=== PATIENT | female | born 1970 | race Caucasian/White ===

== ENCOUNTER → 2016-12-31 | Outpatient (CLI) | payer OTHER | LOC: BMCIMAGING 14:08 | PROVIDERS: ATTEND Orthopaedic Surgery | DX: M25.562 Pain in left knee (principal); M25.462 Effusion, left knee; Z96.652 Presence of left artificial knee joint ==

== ENCOUNTER → 2017-01-20 | Outpatient (CLI) | payer OTHER | LOC: BMCIMAGING 15:48 | PROVIDERS: ATTEND Orthopaedic Surgery | DX: Z47.1 Aftercare following joint replacement surgery (principal); Z96.652 Presence of left artificial knee joint ==

== ENCOUNTER 2017-01-21 10:00 | Inpatient (IN) | payer OTHER ==
[~2017-01-21 10:00] MED LIST: ROPIVACAINE 0.2% 80 MG, EPINEPHrine 0.2 MG, KETOROLAC TROMETHAMINE 30 MG, morphINE 10 M... IU ONE; TRANEXAMIC ACID 1,000 MG in NS 100 ML IV ONE
[2017-01-21] MEDS ORDERED: ACETAMINOPHEN 325 MG TAB PO ONE (10:10)
[2017-01-21] MEDS ORDERED: FAMOTIDINE 20 MG TAB PO ONE (10:10)
[2017-01-21] MEDS ORDERED: ceFAZolin 2 GM/SWFI 2 GM/20 ML SYR IVP ONE (10:10)
[2017-01-21] MEDS ORDERED: LR 1,000 ML IV ONE (10:11)
[2017-01-21] MEDS ORDERED: LIDOCAINE 1% 2 ML INJ ID PRN (10:11)
[2017-01-21] MEDS ORDERED: ceFAZolin 1 GM/5 ML SYR ONE (10:46)
[2017-01-21] MEDS ORDERED: BUPIVACAINE/EPI 0.5% 30 ML SDV ONE (10:47)
[2017-01-21] MEDS ORDERED: CALCIUM CHLORIDE 1 GM/10 ML INJ ONE (10:48)
[2017-01-21] MEDS ORDERED: THROMBIN (BOVINE) 5,000 UNIT VIAL TP ONE (10:49)
--- NOTE | 2017-01-21 11:33 | PDHPUP ---
History & Physical Update H&P update statement: This history and physical update is based on an assessment of the patient which was completed after admission or registration (within 24 hours), but prior to the surgery/procedure.
--- NOTE | 2017-01-21 11:34 | PDIAF ---
- Diagnosis Diagnosis: left failed tka Code Status: Full Code - Medication Management Discharge Medications: Medications to Continue on Transfer Empagliflozin [Jardiance] 10 mg PO DAILY 01/07/17 [Last Taken 01/20/17] Gabapentin [Neurontin 300 MG (*)] 600 mg PO HS 01/07/17 [Last Taken 01/20/17] Hydralazine HCl 25 mg PO HS 01/07/17 [Last Taken 01/20/17] Hydrochlorothiazide [HCTZ (*)] 25 mg PO DAILY 01/07/17 [Last Taken 01/20/17] Multivitamins [Multivitamin (*)] 1 each PO DAILY 01/07/17 [Last Taken 01/20/17] [place]-3 Fatty Acids [Fish Oil 1000 mg (*)] 1,000 mg PO DAILY 01/07/17 [Last Taken 01/14/17] buPROPion XL [Wellbutrin Xl] 450 mg PO DAILY 01/07/17 [Last Taken 01/21/17] metFORMIN HCL [Metformin HCl ER] 1,000 mg PO BID 01/07/17 [Last Taken 01/20/17] Levothyroxine [Synthroid 75 mcg (*)] 75 mcg PO DAILY06 01/21/17 [Last Taken 01/26] Rosuvastatin Calcium [Crestor 10mg (RX)] 10 mg PO DAILY 01/21/17 [Last Taken 12/27] Discharge Medications: Refer to the Discharge Home Medication list for PRN reason. - Orders Services needed: Home Care, Physical Therapy Home Care Face to Face: I certify that this patient was under my care and that I had the required [id number] encounter meeting the encounter requirements on the discharge day. My findings support the fact that the patient is homebound as defined in Home Care Face to Face Continued: CMS Chapter 7 Medicare Benefits Manual 30.1.1 , The condition of the patient is such that there exists a normal inability to leave home and consequently, leaving home would require a considerable and taxing effort. Diet Recommendation: no restrictions on diet Diet Texture: Regular Texture Diet Activity/Weight Bearing Restrictions: wbat. rom as tolerated. daily dressing changes. may shower without bandage. no soaking or immersion. f/u at two weeks as previously scheduled. aspirin 325 mg po daily - Follow Up Care Current Providers and Referrals: Sathish Salvador MD [Primary Care Provider] -
[2017-01-21] MEDS ORDERED: MIDAZOLAM 2 MG/2 ML VIAL IVP ONE (11:58)
--- NOTE | 2017-01-21 12:00 | PDANEPAE ---
ANE Past Medical History - Cardiovascular History Hx Hypertension: Yes Hx Arrhythmias: No Hx Chest Pain: No Hx Coronary Artery / Peripheral Vascular Disease: No Hx CHF / Valvular Disease: No Hx Palpitations: No Cardiovascular History Comment: pcp monitors bp. swelling - Pulmonary History Hx COPD: No Hx Asthma/Reactive Airway Disease: No Hx Recent Upper Respiratory Infection: Yes Hx Oxygen in Use at Home: No Hx Sleep Apnea: No Sleep Apnea Screening Result - Last Documented: Negative Pulmonary History Comment: hx of asthma when she was overweight - Neurologic History Hx Cerebrovascular Accident: No Hx Seizures: No Hx Dementia: No Neurologic History Comment: hx of cervical fusion - Endocrine History Hx Diabetes: Yes Hypothyroid: No Hyperthyroid: No Obesity: severe Endocrine History Comment: hypothyroidism. type 2 - Renal History Hx Renal Disorders: No - Liver History Hx Hepatic Disorders: No - Neurological & Psychiatric Hx Hx Neurological and Psychiatric Disorders: Yes Neurological / Psychiatric History Comment: depression. anxiety - Cancer History Hx Cancer: No - Congenital Disorder History Hx Congenital Disorders: No - GI History Hx Gastrointestinal Disorders: Yes Gastrointestinal History Comment: diarrhea regularly - Other Health History Other Health History: wears glasses - Chronic Pain History Chronic Pain: Yes (left knee) - Surgical History Prior Surgeries: left knee replacement x1. right knee replacement. cervical fusion. left knee scopes. toño. appy ANE Review of Systems Review of Systems: - Exercise capacity METS (RN): 4 METS ANE Patient History - Allergies Allergies/Adverse Reactions: prednisone Allergy (Verified 01/07/17 15:24) makes patient feels "nuts" Sulfa (Sulfonamide Antibiotics) Allergy (Verified 01/07/17 15:24) swell - Home Medications Home Medications: Empagliflozin [Jardiance] 10 mg PO DAILY 01/07/17 [Last Taken 01/20/17] Gabapentin [Neurontin 300 MG (*)] 600 mg PO HS 01/07/17 [Last Taken 01/20/17] Hydralazine HCl 25 mg PO HS 01/07/17 [Last Taken 01/20/17] Hydrochlorothiazide [HCTZ (*)] 25 mg PO DAILY 01/07/17 [Last Taken 01/20/17] Multivitamins [Multivitamin (*)] 1 each PO DAILY 01/07/17 [Last Taken 01/20/17] [place]-3 Fatty Acids [Fish Oil 1000 mg (*)] 1,000 mg PO DAILY 01/07/17 [Last Taken 01/14/17] buPROPion XL [Wellbutrin Xl] 450 mg PO DAILY 01/07/17 [Last Taken 01/21/17] metFORMIN HCL [Metformin HCl ER] 1,000 mg PO BID 01/07/17 [Last Taken 01/20/17] Levothyroxine [Synthroid 75 mcg (*)] 75 mcg PO DAILY06 01/21/17 [Last Taken 01/26] Rosuvastatin Calcium [Crestor 10mg (RX)] 10 mg PO DAILY 01/21/17 [Last Taken 12/27] - NPO status NPO Since - Liquids (Date): 01/21/17 NPO Since - Liquids (Time): 09:30 NPO Since - Solids (Date): 01/20/17 NPO Since - Solids (Time): 23:00 - Smoking Hx Smoking Status: Never smoked - Family Anes Hx Family Hx Anesthesia Complications: mother and pt have low blood oxygen levels ANE Labs/Vital Signs - Vital Signs Blood Pressure: 143/94 Heart Rate: 85 Respiratory Rate: 16 O2 Sat (%): 92 Height: 170.18 cm Weight: 102.965 kg ANE Physical Exam - Airway Neck exam: decreased ROM Mallampati Score: Class 1 Mouth exam: normal dental/mouth exam - Pulmonary Pulmonary: no respiratory distress - Cardiovascular Cardiovascular: regular rate and rhythym - ASA Status ASA Status: III ANE Anesthesia Plan Anesthesia Plan: spinal
[2017-01-21] MEDS ORDERED: fentaNYL 100 MCG/2 ML INJ ONE (12:08)
[2017-01-21] MEDS ORDERED: PROPOFOL/EMULSION 500 MG/50 ML BOTTLE IV ONE (12:08)
[2017-01-21] MEDS ORDERED: MIDAZOLAM 2 MG/2 ML VIAL ONE (12:46)
[2017-01-21] MEDS ORDERED: PROPOFOL 200 MG/20 ML VIAL ONE ×2 (13:20→13:42)
[2017-01-21] MEDS ORDERED: PROMETHAZINE HCL 25 MG/ML INJ IVP PRN (14:07)
[2017-01-21] MEDS ORDERED: TEMAZEPAM 15 MG CAP PO PRN (14:07)
[2017-01-21] MEDS ORDERED: ONDANSETRON 4 MG/2 ML VIAL IVP PRN ×2 (14:07→14:59)
[2017-01-21] MEDS ORDERED: BISACODYL 10 MG SUPP PR PRN (14:07)
[2017-01-21] MEDS ORDERED: DIAZEPAM 5 MG TAB PO PRN (14:07)
[2017-01-21] MEDS ORDERED: POLYETHYLENE GLYCOL 3350 17 GM PKT PO PRN (14:07)
[2017-01-21] MEDS ORDERED: DIPHENOXYLATE/ATROPINE LOMOTIL 1 TAB PO PRN (14:07)
[2017-01-21] MEDS ORDERED: METOCLOPRAMIDE 10 MG/2 ML VIAL IVP PRN (14:07)
[2017-01-21] MEDS ORDERED: diphenhydrAMINE 25 MG CAP PO PRN (14:07)
[2017-01-21] MEDS ORDERED: CYCLOBENZAPRINE 10 MG TAB PO PRN (14:07)
[2017-01-21] MEDS ORDERED: LACTULOSE 20 GM/30 ML UDCUP PO PRN (14:07)
[2017-01-21] MEDS ORDERED: PROMETHAZINE HCL 25 MG SUPPR PR PRN (14:07)
[2017-01-21] MEDS ORDERED: ONDANSETRON DISINTEGRATING 4 MG TAB PO PRN (14:07)
[2017-01-21] MEDS ORDERED: MAGNESIUM HYDROXIDE 30 ML UDCUP PO PRN (14:07)
[2017-01-21] MEDS ORDERED: ROPIVACAINE HCL 150 MG/30 ML INJ ONE (14:23)
[2017-01-21] MEDS ORDERED: LR 1,000 ML IV SCH (14:30)
[2017-01-21] MEDS ORDERED: LR 500 ML IV PRN (14:59)
[2017-01-21] MEDS ORDERED: fentaNYL 100 MCG/2 ML INJ IVP PRN (14:59)
[2017-01-21] MEDS ORDERED: NALOXONE HCL 0.4 MG/ML INJ IVP PRN (14:59)
[2017-01-21] MEDS ORDERED: HYDROCODONE/APAP 5/325 TAB PO PRN (14:59)
--- NOTE | 2017-01-21 15:01 | POSTANESTH ---
Post Anesthetic Evaluation Cardiovascular Status: Normal, Stable Respiratory Status: Normal, Stable Level of Consciousness/Mental Status: Can Participate in Eval Pain Control: Adequate, Prn Tx Ordered Nausea/Vomiting Control: Adequate, Prn Tx Ordered Complications Possibly Related to Anesthesia: None Noted
[2017-01-21] MEDS: ACETAMINOPHEN 325 MG TAB PO SCH ×2 (17:42→23:13)
[2017-01-21] MEDS: oxyCODONE IR 5 MG TAB PO PRN ×2 (18:47→22:03)
[2017-01-21] MEDS ORDERED: ASPIRIN 325 MG TAB PO SCH (21:00)
[2017-01-21] MEDS ORDERED: GABAPENTIN 300 MG CAP PO SCH (21:00)
[2017-01-21] MEDS ORDERED: hydrALAZINE 25 MG TAB PO SCH (21:00)
[2017-01-21] MEDS ORDERED: NON-FORMULARY NEW DRUG (Metformin Hcl [Metformin Hcl Er] 1,000 MG) PO SCH (21:00)
[2017-01-21] MEDS: ceFAZolin 2 GM/DEXTROSE 100 ML IV SCH (22:03)
[2017-01-21] MEDS: SENNOSIDES/DOCUSATE SODIUM TAB PO SCH (22:04)
[2017-01-21] MEDS: TRANEXAMIC ACID 650 MG TAB PO SCH (22:04)
[2017-01-21] MEDS: metFORMIN SR 500 MG TAB PO SCH (22:04)
[2017-01-21] MEDS: FAMOTIDINE 20 MG TAB PO SCH (22:04)
[2017-01-22] MEDS: ACETAMINOPHEN 325 MG TAB PO SCH ×2 (05:24→12:57)
[2017-01-22] MEDS: ceFAZolin 2 GM/DEXTROSE 100 ML IV SCH (05:24)
[2017-01-22] MEDS: TRANEXAMIC ACID 650 MG TAB PO SCH ×2 (05:24→13:01)
[2017-01-22] MEDS: oxyCODONE IR 5 MG TAB PO PRN ×3 (05:25→16:29)
[2017-01-22 05:35] LABS: HEMATOCRIT 35.7 % (38.0-47.0); HEMOGLOBIN 12.2 g/dL (12.6-16.3)
[2017-01-22] MEDS ORDERED: LEVOTHYROXINE 75 MCG TAB PO SCH (06:00)
--- NOTE | 2017-01-22 07:11 | PDIAF ---
- Diagnosis Diagnosis: left failed tka Code Status: Full Code - Medication Management Discharge Medications: Medications to Continue on Transfer Empagliflozin [Jardiance] 10 mg PO DAILY 01/07/17 [Last Taken 01/20/17] Gabapentin [Neurontin 300 MG (*)] 600 mg PO HS 01/07/17 [Last Taken 01/20/17] Hydralazine HCl 25 mg PO HS 01/07/17 [Last Taken 01/20/17] Hydrochlorothiazide [HCTZ (*)] 25 mg PO DAILY 01/07/17 [Last Taken 01/20/17] Multivitamins [Multivitamin (*)] 1 each PO DAILY 01/07/17 [Last Taken 01/20/17] [place]-3 Fatty Acids [Fish Oil 1000 mg (*)] 1,000 mg PO DAILY 01/07/17 [Last Taken 01/14/17] buPROPion XL [Wellbutrin 150mg XL] 450 mg PO DAILY 01/07/17 [Last Taken 01/21/17 ] metFORMIN HCL [Metformin HCl ER] 1,000 mg PO BID 01/07/17 [Last Taken 01/20/17] Levothyroxine [Synthroid 75 mcg (*)] 75 mcg PO DAILY06 01/21/17 [Last Taken 01/26] Rosuvastatin Calcium [Crestor] 10 mg PO DAILY 01/21/17 [Last Taken 01/20/17] Enoxaparin [Lovenox] 30 mg SC BID #14 syr 01/22/17 [Last Taken Unknown] oxyCODONE IR [Oxycodone Ir (*)] 5 - 10 mg PO Q3HRS PRN #80 tab 01/22/17 [Last Taken Unknown] Discharge Medications: Refer to the Discharge Home Medication list for PRN reason. - Orders Services needed: Home Care, Physical Therapy Home Care Face to Face: I certify that this patient was under my care and that I had the required [id number] encounter meeting the encounter requirements on the discharge day. My findings support the fact that the patient is homebound as defined in Home Care Face to Face Continued: CMS Chapter 7 Medicare Benefits Manual 30.1.1 , The condition of the patient is such that there exists a normal inability to leave home and consequently, leaving home would require a considerable and taxing effort. Diet Recommendation: no restrictions on diet Diet Texture: Regular Texture Diet Activity/Weight Bearing Restrictions: wbat. rom as tolerated. daily dressing changes. may shower without bandage. no soaking or immersion. f/u at two weeks as previously scheduled. aspirin 325 mg po daily - Follow Up Care Current Providers and Referrals: Sathish Salvador MD [Primary Care Provider] -
--- NOTE | 2017-01-22 07:45 | GDS ---
[f rep st] DISCHARGE SUMMARY ADMISSION DIAGNOSIS: Left total knee arthroplasty. POSTOP DIAGNOSIS: Left total knee arthroplasty. PROCEDURE: Revision arthroplasty left total knee and patellofemoral ligament reconstruction. OPERATIVE INDICATIONS: The patient is a 46-year-old woman who has undergone a total knee replacement at an outside facility approximately 1 year ago. She has developed gross instability to her patello femoral articulation. Given her failure with all conservative measures, I recommended operative inte rvention for revision and MPFL reconstruction. She understood the risks, benefits, alternatives, and wished to proceed. Written consent was signed and placed in the patient's chart. HOSPITAL COURSE: The patient was admitted to the hospital floor after uncomplicated revision arthrop lasty to her left knee and patellar stabilization. She tolerated the procedure well. She did have a [place] overnight which was discontinued. At the time of discharge, she is tolerating an oral diet, h er pain is well controlled on oral medicines, she is voiding without difficulty. Her dressing is morena an, dry, and intact. She has no calf swelling or tenderness. Negative Homans. X-rays are stable wi th anatomic alignment. DISCHARGE ACTIVITY: She is weightbearing as tolerated in the knee brace, locked in extension. There is no range of motion allowed at this time. Daily dressing changes. She will follow up in 2 weeks as previously scheduled for dressing changes and we will begin range of motion with physical therapy at that time. DISCHARGE MEDICATIONS: Oxycodone 5 mg 1-2 every 3 hours p.r.n. pain and enoxaparin 30 mg subcu twice daily. Follow up at 2 weeks. /[id number]/MODL
[2017-01-22] MEDS: SENNOSIDES/DOCUSATE SODIUM TAB PO SCH (08:46)
[2017-01-22] MEDS: metFORMIN SR 500 MG TAB PO SCH (08:47)
[2017-01-22] MEDS: FAMOTIDINE 20 MG TAB PO SCH (08:48)
[2017-01-22] MEDS ORDERED: ENOXAPARIN 30 MG/0.3 ML SYR SC SCH (09:00)
[2017-01-22] MEDS ORDERED: buPROPion XL 150 MG TAB PO SCH (09:00)
[2017-01-22] MEDS ORDERED: MULTIVITAMINS 1 EACH TAB PO SCH (09:00)
[2017-01-22] MEDS ORDERED: HYDROCHLOROTHIAZIDE 25 MG TAB PO SCH (09:00)
[2017-01-22] MEDS ORDERED: OMEGA-3 FATTY ACIDS 1,000 MG CAP PO SCH (09:00)
[2017-01-22] MEDS ORDERED: ROSUVASTATIN CALCIUM 10 MG TAB PO SCH (09:00)
[2017-01-22] MEDS ORDERED: Empagliflozin [Jardiance] 10 MG PO SCH (09:00)
[2017-01-22 11:59] VITALS: RESP 16
[2017-01-22 16:21] VITALS: BP 112/73; PULSE 98; TEMP 98.3; O2SAT 93
--- NOTE | 2017-01-24 08:55 | GOP ---
[f rep st] OPERATIVE REPORT DATE OF OPERATION: 01/21/2017 SURGEON: Omar Carlson MD PAINT DEPARTMENT SUPERVISOR: Elier Church, DA[employer]Y FARM SUPERVISOR, COLLECTIONS AND ARCHIVES DIRECTOR, registered nurse surgical services, who was a medical necessity for the entire ty of the case. 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 PROCEDURE PERFORMED: 1. Left knee revision femoral component. 2. Repair of dislocating patella. 3. Medial patellofemoral ligament reconstruction with allograft. FINDINGS: SPECIMENS: To Pathology, none. INDICATIONS: The patient is a 46-year-old woman who has undergone a total knee replacement by an out side facility approximately 1 year ago. She has developed gross instability to her kneecap with disl ocation in both flexion and extension. I have recommended revision arthroplasty, reconstruction of h er medial patellofemoral ligament, and soft tissue plication as appropriate. I outlined the surgical procedure, risks, benefits, and alternatives. She wished to proceed. Appropriate consent was pamela d and placed in patient's chart. DESCRIPTION OF PROCEDURE: Patient was identified in the preanesthesia area. The left knee clearly d emarcated as operative site with indelible marker. She was given 2 g of Ancef intravenously en route to the operative suite. In the OR, spinal anesthetic was placed, followed by general endotracheal a nesthesia. She was positioned in the supine position. All bony prominences were well padded. Appro priate time-out procedure was carried out. The limb was then sterilely prepped and draped in usual f ashion. Limb was exsanguinated with Esmarch bandage and the tourniquet inflated to 275 mmHg. The pr evious incision was opened in entirety, carried sharply through the skin and subcutaneous tissue. Th ere were no sutures remaining from the previous surgery through the arthrotomy site. The medial para patellar incision was made. There was gross laxity to both the medial and lateral retinacular tissue with redundant tissue. The patellar, femoral, and tibial components were interrogated sequentially, felt to be appropriately positioned and aligned. There was no evidence of loosening. The femoral c omponent was in place with reference to the epicondylar axis. The polyethylene spacer was withdrawn as the knee was unstable with varus and valgus stress throughout the flexion-extension arc, and this was exchanged for a 4 x 11 mm thick tibial insert. After trialing, this was confirmed to be fully se ated. This restored the flexion-extension balance through the full range of motion. Attention was t hen turned to the patella. A lateral release was carried out and this was oversewn with #1 Ethibond suture to remove the redundancy in the lateral retinaculum. The medial parapatellar tissue was then excised in an ellipse with the greatest diameter of approximately 2 cm of redundant capsular tissue. This was assessed using towel clips and the knee was taken through the flexion/extension arc. Ultim ately, felt to be appropriate. The medial parapatellar arthrotomy was closed using #1 Ethibond sutur es. The patella was exposed over the medial border. Two drill holes were made over guidewires for t [employer] MPFL reconstruction kit. One was placed at the superior pole of the patella, the other wa s placed at the midpoint. An allograft was draped over a TightRope button and secured with 2 Bio-Swi veLock anchors in both of these proximal and middle patellar holes. A subcutaneous tunnel was then c reated to the medial epicondyle. A guidewire was placed across the proximal superior aspect of the m edial epicondyle, exiting the lateral surface of the femur, and drilled with a 6 mm reamer. The butt on was then advanced through this area to the lateral cortex of the femur and confirmed to be flipped . The graft was then sequentially tightened with flexion-extension across the knee in approximately 30 degrees of flexion, tightening the medial patellofemoral ligament reconstruction. This allowed fu ll flexion and extension of the knee without separation of the hardware, and 30% subluxation of the p atella through the flexion-extension arc. The wound was then copiously irrigated. Joint instilled w ith platelet-rich plasma. Subcutaneous tissue closed using 0 Quill, the skin stapled. Margins were i nstilled with a joint cocktail of ropivacaine, morphine, Toradol, and epinephrine. A sterile bandage was applied, followed by a knee brace in extension. Patient was awakened, ext[facility] TOTAL TOURNIQUET TIME: 65 minutes. COMPLICATIONS: None. IMPLANTS: As above. DISPOSITION: To the recovery room, then the floor. She will be weightbearing as tolerated with the brace locked in extension. She will begin range of motion at 2 weeks with 30 degrees increase per we ek until full range of motion has been restored. /[id number]/MODL
== END 2017-01-22 16:50 | disposition home or self-care (01) | DRG 468 ==
LOC: F3N 10:00
PROVIDERS: ADMIT Orthopaedic Surgery; ATTEND Orthopaedic Surgery
DX: T84.023A Instability of internal left knee prosthesis, initial encounter (principal); M22.02 Recurrent dislocation of patella, left knee; M25.562 Pain in left knee; M75.41 Impingement syndrome of right shoulder; I10 Essential (primary) hypertension; E03.9 Hypothyroidism, unspecified; E11.9 Type 2 diabetes mellitus without complications; Z96.653 Presence of artificial knee joint, bilateral
CPT/HCPCS: 97116-GP; 97161-GP; 97165-GO; C1713; C1762; J0171; J0690; J1650; J1885; J2250; J2550; J2704; J2795; J3010; L1832

== ENCOUNTER → 2017-08-06 | Outpatient (CLI) | payer MEDICAID | LOC: BMCIMAGING 13:57 | PROVIDERS: ATTEND Orthopaedic Surgery | DX: Z47.1 Aftercare following joint replacement surgery (principal); Z96.652 Presence of left artificial knee joint ==